=== PATIENT | female | born 1935 | race Caucasian/White ===

== ENCOUNTER 2021-04-25 20:53 | Emergency (ER) | payer MEDICARE, OTHER ==
[~2021-04-25] VITALS: Ht 165.1 cm; Wt 68.0 kg
[~2021-04-25 20:53] MED LIST: ALPR0.5T PO; ASPI-1497 PO; ATEN50TA PO; ATOR20TA PO; DOCU-138 PO; ENAL20TA18 PO; MECL25TA3 PO; METF-416 PO; RANI-655 PO
[2021-04-26 00:43] VITALS: BP 145/80
== END 2021-04-25 23:50 | disposition home or self-care (01) ==
LOC: ER 20:53
DX: H43.12 Vitreous hemorrhage, left eye (principal); I10 Essential (primary) hypertension; E11.9 Type 2 diabetes mellitus without complications; F17.200 Nicotine dependence, unspecified, uncomplicated; Z96.659 Presence of unspecified artificial knee joint; Z96.649 Presence of unspecified artificial hip joint; Z79.899 Other long term (current) drug therapy; Z88.0 Allergy status to penicillin
CPT/HCPCS: 93005; 99283